=== PATIENT | female | born 1970 | race Caucasian/White ===

== ENCOUNTER 2017-12-14 12:09 | Emergency (ER) | payer OTHER ==
[~2017-12-14] VITALS: Ht 175.2 cm; Wt 126.6 kg
[~2017-12-14 12:09] MED LIST: ATIVAN1 MG PO; AVPAK AZITHROM250 M1 PO; BACTRIM DS 8001 TA1 PO; BIAXIN500 MG PO; BIRTH CONTROL; CELEXA40 MG PO; CIPRO500 MG PO; CIPRO750 MG PO; CIPRODEX 0.3%-7.5 ML OT; CLARITIN-D 12 H1 TAB PO; CLARITIN10 MG PO; CLOTRIMAZOLE 1010 ML OT; COMBIVENT1 ARO IH; DIFLUCAN100 MG PO; FLONASE0.05 MG/AC NS; GEMFIBROZIL600 MG PO; IBUPROFEN 30 M800 MG PO; LATU20TA PO; MEDROL DOSEPAK4 MG PO; MELATONIN1 M1 PO; NAPROSYN500 MG PO; NEURONTIN300 MG PO; NIZORAL 2%15 GM PO; PARAGARD T; PERIGUARD TP; PHENERGAN W/CO120 ML PO; PROAIR HFA0.09 MG/AC IH; SEPTRA DS 800 M1 TAB PO; SERTRALINE HYD100 MG PO; TRAMADOL HCL50 MG PO; VENTOLIN H0.09 MG/AC INH; VISTARIL50 MG PO; ZITHROMAX Z PA250 MG PO; ZITHROMAX250 MG PO; ZOLOFT100 MG PO
[2017-12-14] MEDS ORDERED: DEPAKOTE500 MG PO (12:20)
[2017-12-14] MEDS ORDERED: CYMBALTA60 MG PO (12:20)
[2017-12-14] MEDS ORDERED: MOBIC15 MG PO (12:21)
[2017-12-14] MEDS ORDERED: FLONASE ALLERG9.9 ML NAS (12:39)
[2017-12-14] MEDS ORDERED: PREDNISONE10 MG PO (12:39)
[2017-12-14] MEDS ORDERED: ROBITUSSIN DM 105 ML PO (12:58)
== END 2017-12-14 13:53 | disposition home or self-care (01) ==
LOC: ED 12:09
DX: B34.9 Viral infection, unspecified (principal); R03.0 Elevated blood-pressure reading, without diagnosis of hypertension; Z98.890 Other specified postprocedural states; Z79.899 Other long term (current) drug therapy; Z88.0 Allergy status to penicillin; Z91.011 Allergy to milk products; Z88.8 Allergy status to other drugs, medicaments and biological substances

== ENCOUNTER → 2018-01-07 | Outpatient (CLI) | payer OTHER ==
[~2018-01-07] MED LIST changes: +CYMBALTA60 MG PO; +DEPAKOTE500 MG PO; +FLONASE ALLERG9.9 ML NAS; +MOBIC15 MG PO; +PREDNISONE10 MG PO; +ROBITUSSIN DM 105 ML PO
[2018-01-07 10:19] LABS: BASO # 0.1 10*3/uL (0.0-0.1); EOS # 0.2 10*3/uL (0.0-0.4); EOS % 3.9 % (1.0-4.0); HEMATOCRIT 36.7 % (37.0-47.0); HEMOGLOBIN 11.1 g/dl (12.0-16.0); LYMPH % 32.6 % (27.0-41.0); MEAN CELL VOLUME 81.9 fl (81.0-99.0); MEAN CORPUSCULAR HGB 24.8 pg (27.0-31.0); MEAN CORPUSCULAR HGB CONC 30.2 g/dl (33.0-37.0); MEAN PLATELET VOLUME 11.6 fl (9.6-12.3); MONO # 0.5 10*3/uL (0.1-1.0); MONO % 8.6 % (3.0-9.0); NEUT # 3.3 10*3/uL (2.3-7.9); NEUT % 53.6 % (47.0-73.0); PLATELET COUNT AUTOMATED 305 10*3/uL (130-400); RED BLOOD COUNT 4.48 10*6/uL (4.10-5.10); RED CELL DISTRI WIDTH 14.9 % (0-14.5); WHITE BLOOD COUNT 6.1 10*3/uL (4.8-10.8)
[2018-01-07 10:40] LABS: ALBUMIN 3.1 gm/dl (3.1-4.5); BUN 12 mg/dl (7-24); CHLORIDE 105 mmol/L (98-107); POTASSIUM 4.3 mmol/L (3.5-5.1); SODIUM 138 mmol/L (136-145)
[2018-01-07 10:51] LABS: ALKALINE PHOSPHATASE 79 U/L (45-117); CREATININE 0.88 mg/dL (0.55-1.02); SGOT/AST 8 IU/L (3-35); SGPT/ALT 11 U/L (12-78); TOTAL PROTEIN 7.1 gm/dL (6.4-8.2); VALPROIC ACID (DEPAKENE) 83.7 ug/ml (50-100)
[2018-01-07 11:56] LABS: VITAMIN D, 25-HYDROXY 10.2 ng/mL (30-100)
== END | disposition home or self-care (01) ==
LOC: LAB 09:36
PROVIDERS: Physician Assistant
DX: Z51.81 Encounter for therapeutic drug level monitoring (principal); R78.89 Finding of other specified substances, not normally found in blood; Z79.899 Other long term (current) drug therapy

== ENCOUNTER 2018-02-13 12:44 | Emergency (ER) | payer OTHER ==
[~2018-02-13] VITALS: Ht 175.2 cm; Wt 124.7 kg
[2018-02-13] MEDS ORDERED: AMOXICILLIN500 M2 PO (13:57)
== END 2018-02-13 14:39 | disposition home or self-care (01) ==
LOC: ED 12:44
DX: G43.909 Migraine, unspecified, not intractable, without status migrainosus (principal); J01.90 Acute sinusitis, unspecified; Z79.899 Other long term (current) drug therapy; Z88.2 Allergy status to sulfonamides; Z88.1 Allergy status to other antibiotic agents; Z91.09 Other allergy status, other than to drugs and biological substances; Z79.51 Long term (current) use of inhaled steroids; Z98.890 Other specified postprocedural states

== ENCOUNTER 2018-06-25 19:03 | Emergency (ER) | payer OTHER ==
[~2018-06-25] VITALS: Ht 175.2 cm; Wt 123.8 kg
[~2018-06-25 19:03] MED LIST changes: +AMOXICILLIN500 M2 PO
[2018-06-25] MEDS ORDERED: OMNICEF300 MG PO (20:40)
[2018-06-25] MEDS ORDERED: CEPHALEXIN500 M1 PO (20:47)
== END 2018-06-25 21:10 | disposition home or self-care (01) ==
LOC: ED 19:03
DX: J32.1 Chronic frontal sinusitis (principal); J32.0 Chronic maxillary sinusitis; Z88.2 Allergy status to sulfonamides; Z91.048 Other nonmedicinal substance allergy status; Z91.011 Allergy to milk products; Z79.2 Long term (current) use of antibiotics; Z79.899 Other long term (current) drug therapy; Z79.1 Long term (current) use of non-steroidal anti-inflammatories (NSAID)

== ENCOUNTER 2018-07-23 15:23 | Emergency (ER) | payer OTHER ==
[~2018-07-23] VITALS: Ht 175.2 cm; Wt 126.1 kg
[~2018-07-23 15:23] MED LIST changes: +CEPHALEXIN500 M1 PO; +OMNICEF300 MG PO
[2018-07-23] MEDS ORDERED: AMOXICILLIN500 M2 PO (17:22)
== END 2018-07-23 17:45 | disposition home or self-care (01) ==
LOC: ED 15:23
DX: J02.0 Streptococcal pharyngitis (principal); G43.909 Migraine, unspecified, not intractable, without status migrainosus; Z88.2 Allergy status to sulfonamides; Z91.048 Other nonmedicinal substance allergy status; Z88.8 Allergy status to other drugs, medicaments and biological substances; Z91.011 Allergy to milk products; Z79.2 Long term (current) use of antibiotics; Z79.899 Other long term (current) drug therapy

== ENCOUNTER 2019-03-29 01:17 | Emergency (ER) | payer OTHER ==
[2019-03-29 01:49] LABS: BASO # 0.1 10*3/uL (0.0-0.1); BASO % 0.9 % (0.0-1.0); EOS # 0.3 10*3/uL (0.0-0.4); EOS % 2.7 % (1.0-4.0); HEMATOCRIT 34.5 % (37.0-47.0); HEMOGLOBIN 10.1 g/dl (12.0-16.0); MEAN CORPUSCULAR HGB 23.4 pg (27.0-31.0); MEAN CORPUSCULAR HGB CONC 29.3 g/dl (33.0-37.0); MEAN PLATELET VOLUME 11.3 fl (9.6-12.3); MONO # 0.8 10*3/uL (0.1-1.0); MONO % 6.5 % (3.0-9.0); NEUT # 8.7 10*3/uL (2.3-7.9); NEUT % 72.4 % (47.0-73.0); PLATELET COUNT AUTOMATED 358 10*3/uL (130-400); RED BLOOD COUNT 4.31 10*6/uL (4.10-5.10); RED CELL DISTRI WIDTH 15.7 % (0-14.5)
[2019-03-29 02:05] LABS: ALBUMIN 3.2 gm/dl (3.1-4.5); ALKALINE PHOSPHATASE 109 U/L (45-117); BUN 11 mg/dl (7-24); CHLORIDE 105 mmol/L (98-107); CREATININE 1.04 mg/dL (0.55-1.02); LIPASE 108 U/L (73-393); POTASSIUM 3.7 mmol/L (3.5-5.1); SGOT/AST 20 IU/L (3-35); SGPT/ALT 29 U/L (12-78); SODIUM 138 mmol/L (136-145); TOTAL PROTEIN 7.4 gm/dL (6.4-8.2)
[2019-03-29 02:15] LABS: BILIRUBIN 1+ (NEGATIVE); BLOOD NEGATIVE (NEGATIVE); CLARITY SL CLOUDY (CLEAR); COLOR YELLOW (YELLOW); GLUCOSE NEGATIVE (NEGATIVE); KETONE TRACE (NEGATIVE); LEUKO ESTERASE NEGATIVE (NEGATIVE); NITRITE NEGATIVE (NEGATIVE); SPECIFIC GRAVITY >= 1.030 (1.005-1.030)
[2019-03-29 02:20] LABS: EPITHELIAL CELLS 40-45
[2019-03-29 02:21] LABS: BETA-HCG, QUANT < 1.0 mIU/mL (1-3)
[2019-03-29] MEDS ORDERED: ZOFRAN4 MG PO (05:17)
[2019-03-29] MEDS ORDERED: PEPCID20 MG PO (05:17)
[2019-03-29] MEDS ORDERED: IBUPROFEN600 MG PO (16:56)
[2019-03-29] MEDS ORDERED: CEPHALEXIN500 M1 PO (16:56)
== END 2019-03-29 05:21 | disposition home or self-care (01) ==
LOC: ED 01:17
PROVIDERS: Emergency Medicine Emergency Medical Services
DX: K52.9 Noninfective gastroenteritis and colitis, unspecified (principal); G43.909 Migraine, unspecified, not intractable, without status migrainosus; E86.0 Dehydration; Z79.899 Other long term (current) drug therapy; Z79.2 Long term (current) use of antibiotics; Z88.2 Allergy status to sulfonamides; Z91.048 Other nonmedicinal substance allergy status; Z88.8 Allergy status to other drugs, medicaments and biological substances; Z91.011 Allergy to milk products

== ENCOUNTER 2019-03-29 15:45 | Emergency (ER) | payer OTHER ==
[~2019-03-29] VITALS: Ht 175.2 cm; Wt 136.1 kg
[~2019-03-29 15:45] MED LIST changes: +PEPCID20 MG PO; +ZOFRAN4 MG PO
[2019-03-29] MEDS ORDERED: IBUPROFEN600 MG PO (16:56)
[2019-03-29] MEDS ORDERED: CEPHALEXIN500 M1 PO (16:56)
== END 2019-03-29 17:57 | disposition home or self-care (01) ==
LOC: ED 15:45
DX: S91.331A Puncture wound without foreign body, right foot, initial encounter (principal); Z88.2 Allergy status to sulfonamides; Z91.048 Other nonmedicinal substance allergy status; Z88.8 Allergy status to other drugs, medicaments and biological substances; Z91.011 Allergy to milk products; Z79.2 Long term (current) use of antibiotics; Z79.899 Other long term (current) drug therapy; W22.8XXA Striking against or struck by other objects, initial encounter; Y93.89 Activity, other specified; Y92.091 Bathroom in other non-institutional residence as the place of occurrence of the external cause; Y99.8 Other external cause status

== ENCOUNTER → 2019-08-21 | Outpatient (CLI) | payer OTHER ==
[~2019-08-21] MED LIST changes: +IBUPROFEN600 MG PO
[2019-08-21 11:33] LABS: BASO % 0.5 % (0.0-1.0); EOS # 0.3 10*3/uL (0.0-0.4); EOS % 3.6 % (1.0-4.0); HEMATOCRIT 39.7 % (37.0-47.0); HEMOGLOBIN 13.1 g/dl (12.0-16.0); LYMPH # 0.9 10*3/uL (1.3-4.4); LYMPH % 11.5 % (27.0-41.0); MEAN CELL VOLUME 85.9 fl (81.0-99.0); MEAN CORPUSCULAR HGB 28.4 pg (27.0-31.0); MEAN PLATELET VOLUME 11.7 fl (9.6-12.3); MONO # 0.5 10*3/uL (0.1-1.0); MONO % 5.9 % (3.0-9.0); NEUT # 6.1 10*3/uL (2.3-7.9); NEUT % 78.4 % (47.0-73.0); PLATELET COUNT AUTOMATED 285 10*3/uL (130-400); RED BLOOD COUNT 4.62 10*6/uL (4.10-5.10); RED CELL DISTRI WIDTH 13.8 % (0-14.5); WHITE BLOOD COUNT 7.8 10*3/uL (4.8-10.8)
[2019-08-21 11:50] LABS: ALBUMIN 3.2 gm/dl (3.1-4.5); CREATININE 1.18 mg/dL (0.55-1.02); POTASSIUM 3.7 mmol/L (3.5-5.1); TOTAL PROTEIN 7.2 gm/dL (6.4-8.2)
[2019-08-21 13:48] LABS: VITAMIN D, 25-HYDROXY 56.8 ng/mL (30-100)
[2019-08-21 13:49] LABS: FERRITIN 27.3 ng/mL (10.0-291.0)
[2019-08-22 07:07] LABS: CREATININE,URINE 363.2 mg/dL (Not Estab.); MICRO ALBUMIN/CRE RATIO 14.3 (0.0-30.0)
[2019-08-23 04:06] LABS: TESTOSTERONE FREE, (DIRECT) 3.1 pg/mL (0.0-4.2)
== END | disposition home or self-care (01) ==
LOC: LAB 10:46
PROVIDERS: Nurse Practitioner Family
DX: I10 Essential (primary) hypertension (principal); E11.9 Type 2 diabetes mellitus without complications; E78.5 Hyperlipidemia, unspecified; E03.9 Hypothyroidism, unspecified; E53.8 Deficiency of other specified B group vitamins; D64.9 Anemia, unspecified; R23.2 Flushing; N92.6 Irregular menstruation, unspecified; R00.0 Tachycardia, unspecified; R07.9 Chest pain, unspecified

== ENCOUNTER 2019-09-16 16:55 | Emergency (ER) | payer OTHER ==
[~2019-09-16] VITALS: Ht 175.2 cm; Wt 144.7 kg
[2019-09-16 17:37] LABS: BASO # 0.1 10*3/uL (0.0-0.1); BASO % 0.9 % (0.0-1.0); EOS # 0.5 10*3/uL (0.0-0.4); EOS % 7.9 % (1.0-4.0); HEMATOCRIT 41.6 % (37.0-47.0); HEMOGLOBIN 13.9 g/dl (12.0-16.0); LYMPH # 1.8 10*3/uL (1.3-4.4); LYMPH % 26.6 % (27.0-41.0); MEAN CELL VOLUME 86.7 fl (81.0-99.0); MEAN CORPUSCULAR HGB CONC 33.4 g/dl (33.0-37.0); MEAN PLATELET VOLUME 11.9 fl (9.6-12.3); MONO # 0.6 10*3/uL (0.1-1.0); MONO % 8.7 % (3.0-9.0); NEUT # 3.8 10*3/uL (2.3-7.9); NEUT % 55.5 % (47.0-73.0); PLATELET COUNT AUTOMATED 302 10*3/uL (130-400); RED CELL DISTRI WIDTH 13.1 % (0-14.5); WHITE BLOOD COUNT 6.8 10*3/uL (4.8-10.8)
[2019-09-16 17:48] LABS: ACT PARTIAL THROMBO TIME 23.4 SECONDS (20.0-32.1); INTERNATIONAL NORM RATIO 0.9 (2.0-3.5)
[2019-09-16 17:54] LABS: ALBUMIN 3.4 gm/dl (3.1-4.5); ALKALINE PHOSPHATASE 129 U/L (45-117); BUN 12 mg/dl (7-24); CHLORIDE 100 mmol/L (98-107); CREATININE 1.11 mg/dL (0.55-1.02); POTASSIUM 3.4 mmol/L (3.5-5.1); SGOT/AST 35 IU/L (3-35); SGPT/ALT 64 U/L (12-78); SODIUM 136 mmol/L (136-145); TOTAL PROTEIN 7.6 gm/dL (6.4-8.2)
[2019-09-16 18:02] LABS: BILIRUBIN NEGATIVE (NEGATIVE); BLOOD 2+ (NEGATIVE); CLARITY CLEAR (CLEAR); COLOR YELLOW (YELLOW); GLUCOSE 3+ (NEGATIVE); KETONE NEGATIVE (NEGATIVE); LEUKO ESTERASE NEGATIVE (NEGATIVE); NITRITE NEGATIVE (NEGATIVE); SPECIFIC GRAVITY 1.025 (1.005-1.030); UROBILINOGEN 0.2 E.U./dl (0.2-1.0)
[2019-09-16 18:02] LABS: TROPONIN I < 0.015 ng/ml (<0.045)
[2019-09-16 18:15] LABS: BACTERIA 1+; EPITHELIAL CELLS 21-30; MUCOUS 2+
== END 2019-09-16 18:45 ==
LOC: ED 16:55
PROVIDERS: Emergency Medicine
DX: E11.65 Type 2 diabetes mellitus with hyperglycemia (principal); I10 Essential (primary) hypertension; J45.909 Unspecified asthma, uncomplicated; G43.909 Migraine, unspecified, not intractable, without status migrainosus; Z88.2 Allergy status to sulfonamides; Z88.1 Allergy status to other antibiotic agents; Z91.011 Allergy to milk products; Z79.899 Other long term (current) drug therapy

== ENCOUNTER → 2019-10-09 | Outpatient (CLI) | payer OTHER | END | disposition home or self-care (01) | LOC: MAMMO 14:05 → US 15:00 | DX: Z12.31 Encounter for screening mammogram for malignant neoplasm of breast (principal); R93.89 Abnormal findings on diagnostic imaging of other specified body structures ==

== ENCOUNTER → 2019-12-24 | Outpatient (CLI) | payer OTHER ==
[~2019-12-24] MED LIST changes: +FERROUS SULFATE PO; +LANTUS SOL100 UNIT/1 SC; +LOSARTAN PO; +METFORMIN PO; +PROVENTIL HFA6.7 GM INH; +RISPERDAL PO; +SIMVASTATIN PO; +SYNTHROID PO; +TRULICITY SC
--- NOTE | 2019-12-24 10:30 | NUR ---
INFORMED CONSENT OBTAINED FOR STANDARD GXT WITH DR. DAVILA. RESTING EKG NSR WTIH A SUPINE HR OF 88 WITH BP OF 130/82 AND HR OF 109 WITH BP OF 118/76 IN STANDING POSITION. SPO2 97% PRIOR TO EXERCISE. PT COMPLETED 2:26 OF STAGE I AT 1.7 MPH AND 10% GRADE. TEST TERMINATED BECAUSE OF SOB AND LIGHTHEADEDNESS. REACHED A PEAK HR OF 154 WHICH IS 89% OF PREDICTED MAX WITH A PEAK BP OF 148/70. HAD NO CHEST PAIN OR ANY EKG CHANGES. EXERCISE SPO2 OF 96%. HAS A LOW EXERCISE TOLERANCE. LAST RECOVERY HR OF 111 WITH BP OF 124/72. NEGATIVE STANDARD GXT. IV DISCONTINUED AND DISCHARGED IN STABLE CONDITION.
== END ==
LOC: CARD 12-17 09:30
DX: R06.02 Shortness of breath (principal); I10 Essential (primary) hypertension; M19.079 Primary osteoarthritis, unspecified ankle and foot

== ENCOUNTER → 2021-02-03 | Outpatient (CLI) | payer OTHER | END | disposition home or self-care (01) | LOC: MAMMO 01-26 10:00 → US 01-26 10:30 → MAMMO 12:51 | PROVIDERS: ATTEND Nurse Practitioner Family | DX: N63.12 Unspecified lump in the right breast, upper inner quadrant (principal); N63.24 Unspecified lump in the left breast, lower inner quadrant; M51.36 Other intervertebral disc degeneration, lumbar region; M25.78 Osteophyte, vertebrae; M54.42 Lumbago with sciatica, left side; M54.41 Lumbago with sciatica, right side ==

== ENCOUNTER → 2021-02-09 | Day surgery (SDC) | payer OTHER | END | disposition home or self-care (01) | LOC: SDC 01:10 | PROVIDERS: ATTEND Nurse Practitioner Family | DX: N63.10 Unspecified lump in the right breast, unspecified quadrant (principal); C50.911 Malignant neoplasm of unspecified site of right female breast; E11.9 Type 2 diabetes mellitus without complications; F31.9 Bipolar disorder, unspecified; F43.10 Post-traumatic stress disorder, unspecified; I10 Essential (primary) hypertension; E03.9 Hypothyroidism, unspecified; E78.5 Hyperlipidemia, unspecified; E55.9 Vitamin D deficiency, unspecified; J30.2 Other seasonal allergic rhinitis; J45.20 Mild intermittent asthma, uncomplicated; G25.81 Restless legs syndrome; M54.41 Lumbago with sciatica, right side; M54.42 Lumbago with sciatica, left side; Z79.899 Other long term (current) drug therapy ==

== ENCOUNTER 2021-09-03 19:45 | Emergency (ER) | payer OTHER ==
[~2021-09-03] VITALS: Wt 133.4 kg
[2021-09-03 22:15] LABS: BASO % 0.3 % (0.0-1.0); EOS # 0.1 10*3/uL (0.0-0.4); EOS % 0.6 % (1.0-4.0); HEMATOCRIT 36.6 % (37.0-47.0); LYMPH # 1.1 10*3/uL (1.3-4.4); LYMPH % 9.9 % (27.0-41.0); MEAN CELL VOLUME 88.4 fl (81.0-99.0); MEAN CORPUSCULAR HGB 28.7 pg (27.0-31.0); MEAN CORPUSCULAR HGB CONC 32.5 g/dl (33.0-37.0); MEAN PLATELET VOLUME 10.2 fl (9.6-12.3); MONO # 0.8 10*3/uL (0.1-1.0); MONO % 6.9 % (3.0-9.0); NEUT # 8.9 10*3/uL (2.3-7.9); PLATELET COUNT AUTOMATED 199 10*3/uL (130-400); RED BLOOD COUNT 4.14 10*6/uL (4.10-5.10); RED CELL DISTRI WIDTH 12.6 % (0-14.5); WHITE BLOOD COUNT 10.9 10*3/uL (4.8-10.8)
[2021-09-03 22:32] LABS: BUN 9 mg/dl (7-24); CHLORIDE 107 mmol/L (98-107); POTASSIUM 3.2 mmol/L (3.5-5.1); SODIUM 140 mmol/L (136-145)
[2021-09-03 22:36] LABS: ALKALINE PHOSPHATASE 139 U/L (45-117); CREATININE 0.96 mg/dL (0.55-1.02); SGOT/AST 41 IU/L (3-35); SGPT/ALT 43 U/L (12-78); TOTAL PROTEIN 7.2 gm/dL (6.4-8.2)
[2021-09-04] MEDS ORDERED: PROVENTIL HFA6.7 GM INH (00:11)
[2021-09-04] MEDS ORDERED: PREDNISONE20 M1 PO (00:11)
== END 2021-09-04 00:22 | disposition home or self-care (01) ==
LOC: ED 19:45
PROVIDERS: Physician Assistant
DX: J40 Bronchitis, not specified as acute or chronic (principal); Z20.822 Contact with and (suspected) exposure to COVID-19; Z85.3 Personal history of malignant neoplasm of breast; Z98.890 Other specified postprocedural states; Z88.2 Allergy status to sulfonamides; Z91.048 Other nonmedicinal substance allergy status; Z91.011 Allergy to milk products; Z79.899 Other long term (current) drug therapy; Z79.4 Long term (current) use of insulin

== ENCOUNTER 2021-11-14 20:40 | Emergency (ER) | payer OTHER ==
[~2021-11-14] VITALS: Ht 175.2 cm; Wt 129.3 kg
[~2021-11-14 20:40] MED LIST changes: +PREDNISONE20 M1 PO
[2021-11-14 21:54] LABS: BASO # 0.1 10*3/uL (0.0-0.1); BASO % 0.7 % (0.0-1.0); EOS # 0.3 10*3/uL (0.0-0.4); HEMATOCRIT 41.1 % (37.0-47.0); LYMPH # 1.7 10*3/uL (1.3-4.4); MEAN CELL VOLUME 85.3 fl (81.0-99.0); MEAN CORPUSCULAR HGB 27.4 pg (27.0-31.0); MEAN CORPUSCULAR HGB CONC 32.1 g/dl (33.0-37.0); MEAN PLATELET VOLUME 10.9 fl (9.6-12.3); MONO # 0.5 10*3/uL (0.1-1.0); MONO % 6.3 % (3.0-9.0); NEUT # 5.8 10*3/uL (2.3-7.9); NEUT % 69.8 % (47.0-73.0); PLATELET COUNT AUTOMATED 243 10*3/uL (130-400); RED BLOOD COUNT 4.82 10*6/uL (4.10-5.10); WHITE BLOOD COUNT 8.3 10*3/uL (4.8-10.8)
[2021-11-14 22:16] LABS: ALKALINE PHOSPHATASE 120 U/L (45-117); BUN 15 mg/dl (7-24); CHLORIDE 103 mmol/L (98-107); CREATININE 1.16 mg/dL (0.55-1.02); LIPASE 137 U/L (73-393); POTASSIUM 3.8 mmol/L (3.5-5.1); SGOT/AST 16 IU/L (3-35); SGPT/ALT 25 U/L (12-78); SODIUM 138 mmol/L (136-145); TOTAL PROTEIN 7.4 gm/dL (6.4-8.2)
[2021-11-14 23:06] LABS: BILIRUBIN Negative (Negative); BLOOD Negative (Negative); CLARITY Cloudy (Clear); COLOR Yellow (Yellow); GLUCOSE Negative (Negative); KETONE Trace (Negative); LEUKO ESTERASE 1+ (Negative); NITRITE Negative (Negative); PH 5.5 (4.5-8.0); SPECIFIC GRAVITY >= 1.030 (1.001-1.030)
[2021-11-14 23:30] LABS: BACTERIA 2+; EPITHELIAL CELLS 16-20; MUCOUS 2+; WBC 16-20 wbc/hpf (0-5)
[2021-11-15] MEDS ORDERED: CEPHALEXIN500 M1 PO (03:44)
== END 2021-11-15 03:49 | disposition home or self-care (01) ==
LOC: ED 20:40
PROVIDERS: Emergency Medicine
DX: N20.0 Calculus of kidney (principal); N39.0 Urinary tract infection, site not specified; R07.9 Chest pain, unspecified; Z87.440 Personal history of urinary (tract) infections; Z88.2 Allergy status to sulfonamides; Z88.8 Allergy status to other drugs, medicaments and biological substances; Z79.899 Other long term (current) drug therapy; G43.909 Migraine, unspecified, not intractable, without status migrainosus; Z98.890 Other specified postprocedural states

== ENCOUNTER → 2022-09-13 | Outpatient (CLI) | payer OTHER ==
[2022-09-13 11:35] LABS: BASO # 0.1 10*3/uL (0.0-0.1); EOS # 0.3 10*3/uL (0.0-0.4); EOS % 4.4 % (1.0-4.0); HEMATOCRIT 43.9 % (37.0-47.0); LYMPH # 1.6 10*3/uL (1.3-4.4); LYMPH % 22.6 % (27.0-41.0); MEAN CELL VOLUME 91.6 fl (81.0-99.0); MEAN CORPUSCULAR HGB 29.4 pg (27.0-31.0); MEAN CORPUSCULAR HGB CONC 32.1 g/dl (33.0-37.0); MEAN PLATELET VOLUME 11.2 fl (9.6-12.3); MONO # 0.4 10*3/uL (0.1-1.0); MONO % 5.7 % (3.0-9.0); NEUT # 4.6 10*3/uL (2.3-7.9); PLATELET COUNT AUTOMATED 246 10*3/uL (130-400); RED BLOOD COUNT 4.79 10*6/uL (4.10-5.10)
[2022-09-13 11:55] LABS: ALKALINE PHOSPHATASE 97 U/L (46-116); BUN 11 mg/dl (9-23); CHLORIDE 103 mmol/L (98-107); CHOLESTEROL 140 mg/dL (<200); LDL CHOLESTEROL 62 mg/dL (9-159); POTASSIUM 4.1 mmol/L (3.4-5.1); SGPT/ALT 45 U/L (10-49); THYROID STIM HORMONE (HS) 2.696 uIU/ml (0.550-4.780); TOTAL PROTEIN 6.9 gm/dL (6.0-8.0); TRIGLYCERIDES 191 mg/dl (<150)
[2022-09-13 12:46] LABS: VITAMIN D, 25-HYDROXY 21.7 ng/mL (30-100)
[2022-09-15 00:06] LABS: CREATININE,URINE 149.8 mg/dL (Not Estab.)
== END | disposition home or self-care (01) ==
LOC: LAB 11:01
PROVIDERS: ATTEND Nurse Practitioner Family
DX: E11.9 Type 2 diabetes mellitus without complications (principal); E61.1 Iron deficiency; E55.9 Vitamin D deficiency, unspecified; I10 Essential (primary) hypertension

== ENCOUNTER 2022-10-28 13:37 | Emergency (ER) | payer OTHER ==
[~2022-10-28] VITALS: Ht 175.2 cm; Wt 148.8 kg
[2022-10-28 14:29] LABS: BASO # 0.1 10*3/uL (0.0-0.1); BASO % 1.1 % (0.0-1.0); EOS # 0.3 10*3/uL (0.0-0.4); EOS % 3.7 % (1.0-4.0); HEMATOCRIT 43.1 % (37.0-47.0); LYMPH # 1.8 10*3/uL (1.3-4.4); LYMPH % 24.4 % (27.0-41.0); MEAN CELL VOLUME 89.8 fl (81.0-99.0); MEAN CORPUSCULAR HGB 30.2 pg (27.0-31.0); MEAN CORPUSCULAR HGB CONC 33.6 g/dl (33.0-37.0); MEAN PLATELET VOLUME 11.6 fl (9.6-12.3); MONO # 0.4 10*3/uL (0.1-1.0); MONO % 5.7 % (3.0-9.0); NEUT # 4.9 10*3/uL (2.3-7.9); NEUT % 64.8 % (47.0-73.0); PLATELET COUNT AUTOMATED 220 10*3/uL (130-400); RED CELL DISTRI WIDTH 12.2 % (0-14.5); WHITE BLOOD COUNT 7.5 10*3/uL (4.8-10.8)
[2022-10-28 14:44] LABS: ALKALINE PHOSPHATASE 131 U/L (46-116); BUN 14 mg/dl (9-23); CHLORIDE 101 mmol/L (98-107); POTASSIUM 4.3 mmol/L (3.4-5.1); SGPT/ALT 67 U/L (10-49); TOTAL PROTEIN 7.1 gm/dL (6.0-8.0)
[2022-10-28 16:25] LABS: ACT PARTIAL THROMBO TIME 25.1 SECONDS (20.0-32.1)
== END 2022-10-28 18:54 | disposition home or self-care (01) ==
LOC: ED 13:37
PROVIDERS: Internal Medicine
DX: R07.89 Other chest pain (principal); I10 Essential (primary) hypertension; F32.A Depression, unspecified; E11.9 Type 2 diabetes mellitus without complications; F41.9 Anxiety disorder, unspecified; J45.909 Unspecified asthma, uncomplicated; Z88.2 Allergy status to sulfonamides; Z88.8 Allergy status to other drugs, medicaments and biological substances; Z98.890 Other specified postprocedural states

== ENCOUNTER → 2022-12-25 | Outpatient (CLI) | payer OTHER ==
[2022-12-25 11:50] LABS: BASO # 0.1 10*3/uL (0.0-0.1); BASO % 1.2 % (0.0-1.0); EOS # 0.3 10*3/uL (0.0-0.4); EOS % 5.1 % (1.0-4.0); HEMATOCRIT 44.1 % (37.0-47.0); LYMPH # 1.5 10*3/uL (1.3-4.4); LYMPH % 24.4 % (27.0-41.0); MEAN CELL VOLUME 89.6 fl (81.0-99.0); MEAN CORPUSCULAR HGB 30.1 pg (27.0-31.0); MEAN CORPUSCULAR HGB CONC 33.6 g/dl (33.0-37.0); MEAN PLATELET VOLUME 12.1 fl (9.6-12.3); MONO # 0.3 10*3/uL (0.1-1.0); NEUT # 3.9 10*3/uL (2.3-7.9); NEUT % 64.1 % (47.0-73.0); PLATELET COUNT AUTOMATED 226 10*3/uL (130-400); RED BLOOD COUNT 4.92 10*6/uL (4.10-5.10); RED CELL DISTRI WIDTH 12.2 % (0-14.5)
[2022-12-25 12:23] LABS: URINE CREATININE RANDOM 88.16 mg/dL
[2022-12-25 12:56] LABS: VITAMIN D, 25-HYDROXY 24.8 ng/mL (30-100)
[2022-12-25 12:59] LABS: ALKALINE PHOSPHATASE 125 U/L (46-116); BUN 8 mg/dl (9-23); CHLORIDE 101 mmol/L (98-107); CHOLESTEROL 134 mg/dL (<200); LDL CHOLESTEROL 57 mg/dL (9-159); POTASSIUM 4.2 mmol/L (3.4-5.1); SGPT/ALT 59 U/L (10-49); THYROID STIM HORMONE (HS) 2.468 uIU/ml (0.550-4.780); TOTAL PROTEIN 6.8 gm/dL (6.0-8.0); TRIGLYCERIDES 171 mg/dl (<150)
== END | disposition home or self-care (01) ==
LOC: LAB 10:49
PROVIDERS: ATTEND Nurse Practitioner Family
DX: I10 Essential (primary) hypertension (principal); E03.9 Hypothyroidism, unspecified; E61.1 Iron deficiency; E55.9 Vitamin D deficiency, unspecified

== ENCOUNTER → 2023-06-21 | Outpatient (CLI) | payer OTHER ==
[2023-06-21 12:31] LABS: BASO # 0.1 10*3/uL (0.0-0.1); BASO % 1.1 % (0.0-1.0); EOS # 0.3 10*3/uL (0.0-0.4); EOS % 4.9 % (1.0-4.0); HEMATOCRIT 42.9 % (37.0-47.0); LYMPH # 1.5 10*3/uL (1.3-4.4); LYMPH % 23.3 % (27.0-41.0); MEAN CELL VOLUME 90.5 fl (81.0-99.0); MEAN CORPUSCULAR HGB 29.7 pg (27.0-31.0); MEAN CORPUSCULAR HGB CONC 32.9 g/dl (33.0-37.0); MEAN PLATELET VOLUME 11.4 fl (9.6-12.3); MONO # 0.3 10*3/uL (0.1-1.0); MONO % 4.4 % (3.0-9.0); NEUT # 4.3 10*3/uL (2.3-7.9); NEUT % 66.1 % (47.0-73.0); PLATELET COUNT AUTOMATED 260 10*3/uL (130-400); RED BLOOD COUNT 4.74 10*6/uL (4.10-5.10); RED CELL DISTRI WIDTH 11.9 % (0-14.5); WHITE BLOOD COUNT 6.5 10*3/uL (4.8-10.8)
[2023-06-21 13:01] LABS: URINE CREATININE RANDOM 184.24 mg/dL
[2023-06-21 13:08] LABS: ALKALINE PHOSPHATASE 109 U/L (46-116); BUN 7 mg/dl (9-23); CHLORIDE 104 mmol/L (98-107); CHOLESTEROL 131 mg/dL (<200); LDL CHOLESTEROL 59 mg/dL (9-159); POTASSIUM 4.3 mmol/L (3.4-5.1); SGPT/ALT 56 U/L (10-49); TOTAL PROTEIN 7.1 gm/dL (6.0-8.0); TRIGLYCERIDES 157 mg/dl (<150)
== END | disposition home or self-care (01) ==
LOC: LAB 12:05
PROVIDERS: Nurse Practitioner Family; ATTEND Internal Medicine Critical Care Medicine
DX: E11.9 Type 2 diabetes mellitus without complications (principal); E78.5 Hyperlipidemia, unspecified; E03.9 Hypothyroidism, unspecified; E55.9 Vitamin D deficiency, unspecified; I10 Essential (primary) hypertension; R53.83 Other fatigue

== ENCOUNTER 2023-09-15 21:56 | Emergency (ER) | payer OTHER ==
[2023-09-16] MEDS ORDERED: GUAIFENESIN200 MG PO (02:46)
== END 2023-09-16 03:08 | disposition home or self-care (01) ==
LOC: ED 21:56
DX: U07.1 COVID-19 (principal); E11.22 Type 2 diabetes mellitus with diabetic chronic kidney disease; N18.9 Chronic kidney disease, unspecified; F17.210 Nicotine dependence, cigarettes, uncomplicated; Z88.2 Allergy status to sulfonamides; Z91.048 Other nonmedicinal substance allergy status; Z91.011 Allergy to milk products; Z79.2 Long term (current) use of antibiotics; Z79.899 Other long term (current) drug therapy; Z79.4 Long term (current) use of insulin; Z98.890 Other specified postprocedural states

== ENCOUNTER → 2023-12-04 | Outpatient (CLI) | payer OTHER ==
[~2023-12-04] MED LIST changes: +GUAIFENESIN200 MG PO
== END | disposition home or self-care (01) ==
LOC: CT 11-30 16:00
PROVIDERS: ATTEND Nurse Practitioner Family
DX: G44.52 New daily persistent headache (NDPH) (principal); R26.2 Difficulty in walking, not elsewhere classified

== ENCOUNTER → 2024-01-14 | Outpatient (CLI) | payer OTHER ==
[2024-01-14 10:14] LABS: BASO # 0.1 10*3/uL (0.0-0.1); BASO % 0.8 % (0.0-1.0); EOS # 0.4 10*3/uL (0.0-0.4); EOS % 4.9 % (1.0-4.0); HEMATOCRIT 40.4 % (37.0-47.0); LYMPH # 1.5 10*3/uL (1.3-4.4); MEAN CELL VOLUME 89.2 fl (81.0-99.0); MEAN CORPUSCULAR HGB 29.6 pg (27.0-31.0); MEAN CORPUSCULAR HGB CONC 33.2 g/dl (33.0-37.0); MEAN PLATELET VOLUME 10.9 fl (9.6-12.3); MONO # 0.4 10*3/uL (0.1-1.0); NEUT # 5.5 10*3/uL (2.3-7.9); NEUT % 69.9 % (47.0-73.0); PLATELET COUNT AUTOMATED 255 10*3/uL (130-400); RED BLOOD COUNT 4.53 10*6/uL (4.10-5.10); RED CELL DISTRI WIDTH 12.4 % (0-14.5); WHITE BLOOD COUNT 7.8 10*3/uL (4.8-10.8)
[2024-01-14 10:40] LABS: ALKALINE PHOSPHATASE 160 U/L (46-116); BUN 13 mg/dl (9-23); CHLORIDE 102 mmol/L (98-107); CHOLESTEROL 171 mg/dL (<200); LDL CHOLESTEROL 82 mg/dL (9-159); SGPT/ALT 73 U/L (5-49); TOTAL PROTEIN 7.4 gm/dL (6.0-8.0); TRIGLYCERIDES 212 mg/dl (<150)
[2024-01-14 10:45] LABS: URINE CREATININE RANDOM 234.25 mg/dL
== END | disposition home or self-care (01) ==
LOC: LAB 09:38
PROVIDERS: ATTEND Nurse Practitioner Family
DX: E11.9 Type 2 diabetes mellitus without complications (principal); I10 Essential (primary) hypertension; E78.5 Hyperlipidemia, unspecified

== ENCOUNTER → 2024-01-29 | Outpatient (CLI) | payer OTHER | END | disposition home or self-care (01) | LOC: US 01:24 | PROVIDERS: ATTEND Nurse Practitioner Family | DX: R16.0 Hepatomegaly, not elsewhere classified (principal); R74.8 Abnormal levels of other serum enzymes ==

== ENCOUNTER → 2024-04-09 | Outpatient (CLI) | payer OTHER | END | disposition home or self-care (01) | LOC: RAD 10:01 | PROVIDERS: ATTEND Nurse Practitioner Family | DX: M47.812 Spondylosis without myelopathy or radiculopathy, cervical region (principal); M48.02 Spinal stenosis, cervical region; M50.321 Other cervical disc degeneration at C4-C5 level ==

== ENCOUNTER 2024-10-09 12:30 | Emergency (ER) | payer OTHER ==
[~2024-10-09] VITALS: Ht 175.2 cm; Wt 141.1 kg
[2024-10-09] MEDS ORDERED: AMLODIPINE BESYL5 MG PO (12:49)
[2024-10-09] MEDS ORDERED: VENLAFAXINE HY150 M2 PO (12:50)
[2024-10-09] MEDS ORDERED: METOCLOPRAMIDE H5 M1 PO (12:51)
[2024-10-09] MEDS ORDERED: NAPROSYN500 MG PO (13:38)
[2024-10-09] MEDS ORDERED: PENICILLIN VK500 MG PO (13:38)
[2024-10-09] MEDS ORDERED: Acetaminophen/Hydrocodone 5 MG/325 MG TABLET PO ONE (13:40)
== END 2024-10-09 13:41 | disposition home or self-care (01) ==
LOC: ED 12:30
DX: K08.89 Other specified disorders of teeth and supporting structures (principal); Z79.899 Other long term (current) drug therapy; Z88.2 Allergy status to sulfonamides; Z88.1 Allergy status to other antibiotic agents; Z91.011 Allergy to milk products

== ENCOUNTER → 2024-11-18 | Outpatient (CLI) | payer OTHER ==
[~2024-11-18] MED LIST changes: +AMLODIPINE BESYL5 MG PO; +METOCLOPRAMIDE H5 M1 PO; +PENICILLIN VK500 MG PO; +VENLAFAXINE HY150 M2 PO
== END | disposition home or self-care (01) ==
LOC: RAD 07:56
PROVIDERS: ATTEND Nurse Practitioner Family
DX: M19.042 Primary osteoarthritis, left hand (principal); M25.742 Osteophyte, left hand; M79.645 Pain in left finger(s)

== ENCOUNTER → 2025-04-29 | Outpatient (CLI) | payer OTHER | LOC: D 09:03 | PROVIDERS: ATTEND Internal Medicine | DX: E11.9 Type 2 diabetes mellitus without complications (principal) ==